=== PATIENT | male | born 1960 | race Caucasian/White ===

== ENCOUNTER → 2017-01-15 | Outpatient (CLI) | payer OTHER ==
[~2017-01-15] VITALS: Ht 180.3 cm; Wt 72.1 kg
[~2017-01-15] MED LIST: AMBIEN 5 MG TABL5 M1 PO; APAP500 PO; ASPIR 8181 MG PO; AVAPRO300 MG PO; BACTRIM DS TAB1 EACH PO; CARVEDILOL6.25 MG PO; CLONAZEPAM 0.50.5 M1 PO; COLACE 100 MG100 MG PO; DEXILANT60 MG PO; GABAPENTIN 100100 MG PO; LASIX 20 MG TAB20 MG PO; LEVSIN-SL0.125 MG SL; LINZESS145 MCG PO; MYFORTIC360 MG PO; NORCO 5-325 TA1 EACH; NORVASC2.5 MG; ONDANSETRON HCL4 M2 PO; PHOSPHA NEUTRAL1 TA1 PO; PREDNISONE 5 MG5 M1 PO; PROGRAF1 MG PO; REGLAN 10 MG TA10 MG PO; SERTRALINE HCL50 MG PO; TRAMADOL 50 MG50 MG PO; TRILEPTAL150 MG PO; TUMS PO; VALCYTE450 MG PO; XANAX1 MG PO; ZANAFLEX4 MG PO
--- NOTE | ~2017-01-15 | HPC ---
[facility] [address] [place] [address] PAIN MANAGEMENT CONSULTATION Name: BENIGNOALYSSA Room #: REG EM Rendon#: [id number] Admission: 01/15/17 Attend Phys: Nnamdi Pena DO Discharge: Date of : 64 Report #: [id number] THIS REPORT FOR: //name// CC: KEO Pena HISTORY OF PRESENT ILLNESS: The patient is a 56-year-old gentleman who presents to the pain clinic today ostensibly for assistance with management of abdominal pain concerns. I unfortunately do not have any other intervening medical records, he was seen by myself 03/10/2016. That was actually the third time I saw him, having seen him 10/04/2015 and initially in consultation 09/16/2015. At that time, the patient had some neuropathic pain, bilateral lower extremities. Significant comorbidities, schizoaffective disorder, chronic anxiety on multiple central acting agents. Chronic kidney disease, had been on dialysis, and was status post renal transplant in 10/2015. He had had some right lower quadrant abdominal pain, with his ectopic kidney was so this was fairly nominal. The patient tells me that in the intervening times since I saw him, he had surgery to remove his [place] kidneys, it sounds like he may have done some cauterization of hepatic lesions as well (?). The patient presents to pain clinic today requesting pain medications. I reviewed the [place] physician drug monitoring program ([facility]): it appears he had been receiving for quite some time, hydrocodone 10/325 about 30 tablets a month, and along with this he was continuing to receive tramadol 50 mg 3 times a day and multiple central acting agents including zolpidem 10 mg at bedtime (#30), Xanax 0.5 mg t.i.d.(#90) and clonazepam 1 mg daily (#30). Again, these prescriptions seemed to have been filled monthly for the past year. Of significant concern is that he has had hydrocodone filled at high doses by multiple physicians in the past 38 days. On 12/08/2016, he had 180 hydrocodone 10 mg tablets prescribed by Loretta Hernandez. Another 40 hydrocodone 10/[address] Kee Badillo released 12/28/2016 and on 01/06/2017, another 100 hydrocodone 10/325 again by Loretta Hernandez. That is 320 tablets in 38 days (12/08/16-01/15/17). The patient presents to the pain clinic noting he had had the aforementioned surgery in 11/27/2016, was in the hospital for five days, and apparently been in penit[facility] facility for 5 days and then discharged 12/07/2016. States he has right upper quadrant pain. Describes tender bruised feeling, sharp aching. States since 2 on 0-10 visual analog scale at present, but gets up at 7-8 with activity. I reviewed the patient's medications list: he has continued taking gabapentin, but has been weaned down to 100 mg b.i.d. He told me he was not taking [address] [address] PAIN MANAGEMENT CONSULTATION Name: PELAEZALYSSA Room #: REG CLChikis Rendon#: [id number] Admission: 01/15/17 Attend Phys: Nnamdi Pena DO Discharge: Date of : 64 Report #: [id number] zolpidem though again he had 30 of these tablets filled monthly, most recently 12/28/2016. Told me he was taking Xanax "rarely" when again he has been receiving 90 tablets regularly every month and again had 90 tablets filled 12/28/2016. He tells me he stopped taking the Zoloft due to subjective anxiety. Told me stopped taking tizanidine. Does note that he continues to take tramadol 50 mg t.i.d. He tells me that his psychiatrist told him that this (tramadol) is the most difficult drug from which to wean (?) , ostendibly including opiates and benzodiazepines, all of which the patient has taken for quite some time. I assured the patient that the medical literature would suggest that benzodiazepine withdrawal can be lethal, and Schedule II opiate withdrawal can be very difficult as well. I initially started my conversation with the patient suggesting that the short acting opiates were contraindicated for long-term use. Suggested that 6 weeks after abdominal surgery, his pain generator should be significantly attenuated. If he was having ongoing pain, RUQ it was likely from capsular stretch of the liver and we might consider using a smooth muscle relaxant such as Levsin to help with his pain. He may benefit from increasing the calcium channel membrane stabilizing agent gabapentin. I told him that while gabapentin is metabolized renally it is not nephrotoxic. When I suggested converting the patient to Suboxone to help wean off of opiates. He stated "he had read up on that agent and he thought it would interfere with his tramadol". I assured him that Suboxone, being campos opiate agonist, would indeed afford some opiate stimulation, give him some pain relief and would avoid opiate withdrawal. Tramadol has two mechanisms of action, both opiate agonism and serotonin reuptake inhibition, I told the serotonin agent would continue unchanged. Nonetheless, he was adamant that he did not want to take Suboxone. I suggested that if he had opiate habituation issue and was taking tramadol for habituation, I could not continue to write for it; by definition he would need to see an addictionologist. I told him that if he required opiates for long course, we would suggest a long-acting opiate, rather than his continuous fairly aggressive use of short acting opiates. He asked what that would be, I said methadone, long acting morphine or transcutaneous fentanyl. He stated he wanted nothing to do with those medicines. He became somewhat belligerent and I suggested that while he had read a great deal about these medicines, what he seems to have missed in his reading is that he is using inappropriate doses of hydrocodone. Again it appears he has gone through at least 8-9 tablets a day over the past 38 days and I am concerned for this rather aggressive titration on his part. Ultimately, the patient left the clinic disgruntled. He did not take the prescription I generated for hyoscyamine (Levsin) 0.125 sublingual q. 4 hours as needed for abdominal pain and spasm. [address] [address] PAIN MANAGEMENT CONSULTATION Name: BENIGNOALYSSA Mila Room #: REG EM Rendon#: [id number] Admission: 01/15/17 Attend Phys: Nnamdi Pena DO Discharge: Date of : 64 Report #: [id number] Again, I doubt he will be coming back to the pain clinic but would strongly suggest his treating physicians consider a little tighter control on his hydrocodone usage, and possibly in-hospital drug detoxification. <ELECTRONICALLY SIGNED> By: Nnamdi Pena DO 01/18/17 1427 [id number] Nnamdi Pena DO /nt
[2017-01-15 11:00] VITALS: BP 92/63
== END | disposition home or self-care (01) ==
LOC: PAIN 07:48
DX: R10.9 Unspecified abdominal pain (principal); G62.9 Polyneuropathy, unspecified; F25.9 Schizoaffective disorder, unspecified; F41.8 Other specified anxiety disorders; N18.9 Chronic kidney disease, unspecified; Z94.0 Kidney transplant status; Z99.2 Dependence on renal dialysis; F17.200 Nicotine dependence, unspecified, uncomplicated